=== PATIENT | female | born 1945 | race Caucasian/White ===

== ENCOUNTER 2016-11-13 09:00 | Day surgery (SDC) | payer MEDICARE ==
[~2016-11-13] VITALS: Ht 160 cm; Wt 77.0 kg
[~2016-11-13 09:00] MED LIST: 0.9% Sodium Chloride 1,000 ML IV SCH; ACET-2766 PO; ASPI-973 PO; ATOR20TA PO; BUPR100T15 PO; CALC600T12 PO; CITA40TA13 PO; EPIN0.3P2 IJ; ESTR0.5T PO; GINK60CA13 PO; GLUC100016 PO; MELO-253 PO; MULT-1018 PO; PANT20TA2 PO; PANT40TA3 PO; SODI354S PO; SUCR1TAB PO; Sodium Chloride LOK Flush 10 mL Syringe IV PRN; fentaNYL-PF 50 mCg/mL 2 mL Inj IVPUSH PRN
[2016-11-13 09:22] VITALS: BP 136/64; PULSE 69; RESP 16; O2SAT 98
[2016-11-13 10:31] VITALS: BP 130/63; PULSE 69; O2SAT 100
[2016-11-13] MEDS ORDERED: 0.9% Sodium Chloride 1,000 ML IV ONE (10:37)
[2016-11-13 10:42] VITALS: BP 116/60; PULSE 65; O2SAT 95
[2016-11-13 10:48] VITALS: BP 131/59; PULSE 70; O2SAT 100
--- NOTE | 2016-11-13 11:18 | ENDO ---
[address] [address] ENDOSCOPY PROCEDURE PATIENT: ASHLEY LEE : 1945 MR#: [id number] ADMIT: 11/13/2016 JOB ID: [id number] PROCEDURE: Esophagogastroduodenoscopy. INDICATION: Gastroesophageal reflux. ANESTHESIA: Patient's ASA classification is two. Mallampati score is two. MEDICATIONS: Versed 5 mg and fentanyl 112.5 mcg. INSTRUMENT USED: GIF H 180 J. PROCEDURE DETAILS: After informed consent was obtained, the patient was brought into the GI suite, where she was placed on oxygen via nasal cannula and monitored with continuous pulse oximeter, telemetry, and blood pressure monitoring. A time-out was performed, then she was placed in the left lateral decubitus position and medications were administered for sedation. A bite block was placed. Standard esophagogastroduodenoscopy scope was inserted through the bite block and advanced under direct visualization to the 2nd portion of the duodenum without difficulty. FINDINGS: 1. Normal appearing duodenal bulb, first and second portion. 2. Normal appearing pylorus. In the antrum and body of the stomach, the mucosa mild erythema suggestive of mild gastritis and multiple random biopsies were obtained. 3. Retroflexed views in the gastric body revealed a small hiatal hernia, but otherwise normal appearing cardia and fundus. 4. The diaphragmatic hiatus was at approximately 37 cm and the GE junction, which was regular, was at 34 cm. 5. Normal appearing esophagus. IMPRESSION: 1. Mild gastritis. 2. Small hiatal hernia. RECOMMENDATIONS: Continue PPI and proceed to colonoscopy. COMPLICATIONS: None. ESTIMATED BLOOD LOSS: Less than 5 mL. CC: Von Saenz MD PROCEDURE PERFORMED: Colonoscopy. INDICATION: Family history of colon cancer. The patient's ASA classification, Mallampati score, medications as above. Instruments used was a PCF H 180 al prep quality was fair procedure details after completion of the EGD exam, a digital rectal exam was performed, which was unremarkable. The colonoscope was then inserted into the rectum and advanced under direct visualization to the cecum, which was identified by the presence of the ileocecal valve and appendiceal orifice. Once the cecum was reached, the colonoscope was withdrawn back into the rectum as the mucosa and lumen were examined. In the rectum, retroflexion was performed. Following retroflexion, remaining air in the rectum was suctioned, and procedure was completed. Findings. 1. Scattered diverticula were seen throughout the sigmoid colon. 2. Retroflexed views revealed small to moderate-sized internal hemorrhoids. Impression sigmoid diverticulosis. 3. Internal hemorrhoids recommendations repeat colonoscopy in five years. Complications none estimated blood loss zero please send a copies report the patient's primary care provider. The no poor back. This patient stated Ashley the patient started was 1945 count #[id number] into dictation.
--- NOTE | 2016-11-13 13:28 | ENDO ---
[address] [address] ENDOSCOPY PROCEDURE PATIENT: ANI LEE : 1945 MR#: [id number] ADMIT: 11/13/2016 JOB ID: [id number] PROCEDURE: Colonoscopy. INDICATION: Family history of colon cancer. ANESTHESIA: Patient's ASA classification is 2. Mallampati score is 2. MEDICATIONS: Versed 5 mg and fentanyl 112.5 mcg. INSTRUMENT USED: PCF H180AL. PREPARATION QUALITY: Fair. DESCRIPTION OF PROCEDURE: After completion of the EGD exam, a digital rectal exam was performed which was unremarkable. The colonoscope was then inserted into the rectum and advanced under direct visualization to the cecum, which was identified by the presence of the ileocecal valve and appendiceal orifice. Once the cecum was reached, the colonoscope was withdrawn back into the rectum as the mucosa and lumen were examined. In the rectum, retroflexion was performed. Following retroflexion, the remaining air in the rectum was suctioned and the procedure was completed. FINDINGS: 1. Scattered diverticula were seen throughout the sigmoid colon. 2. Retroflexed views revealed small to moderate sized internal hemorrhoids. IMPRESSION: 1. Sigmoid diverticulosis. 2. Internal hemorrhoids. RECOMMENDATIONS: Repeat colonoscopy in 5 years. COMPLICATIONS: None. ESTIMATED BLOOD LOSS: Zero. CC: Stacie Marley MD
--- NOTE | 2016-11-14 11:09 | PATH ---
SURGICAL PATHOLOGY Attending Physician:Zack Saldaña CASE STATUS: Signed Out PATIENT NAME: ANI LEE PID: [id number] : 1945 DATE COLLECTED:11/13/2016 20:32 SPECIMEN: Gastric, Biopsy CLINICAL HISTORY: GASTRIC BIOPSY FINAL DIAGNOSIS: Gastric Biopsy: Mild chronic gastritis involving antral and fundic mucosa. Negative for evidence of Helicobacter. Negative for intestinal metaplasia. Negative for dysplasia and malignancy. ICD10 K29.70 GROSS DESCRIPTION: The specimen is received in one formalin filled container labeled with the patient's name, sublabeled "gastric" and consists of 4 portions of tissue which aggregate to 0.6 x 0.6 0.3 CM. The specimen is entirely submitted in one cassette. 11/13/2016 [facility] ICD-9 CODES: CPT CODES: 1: 54991 Electronically Signed Out Abel Corey MD [facility] [address], [place] [address] Technical component performed at [facility], [facility] [address], [place], [address]
== END 2016-11-13 23:59 | disposition home or self-care (01) ==
LOC: END 09:00
PROVIDERS: ATTEND Internal Medicine Gastroenterology
DX: Z12.11 Encounter for screening for malignant neoplasm of colon (principal); Z80.0 Family history of malignant neoplasm of digestive organs; K57.30 Diverticulosis of large intestine without perforation or abscess without bleeding; K64.8 Other hemorrhoids; K29.50 Unspecified chronic gastritis without bleeding; K44.9 Diaphragmatic hernia without obstruction or gangrene; K21.9 Gastro-esophageal reflux disease without esophagitis; Z79.82 Long term (current) use of aspirin
CPT/HCPCS: 43239; 99153; G0121; G0500; J2250; J7030